=== PATIENT | female | born 2000 | race Caucasian/White ===

== ENCOUNTER 2023-06-10 02:58 | Emergency (ER) | payer SELFPAY ==
[2023-06-10 03:13] VITALS: BP 143/91; PULSE 97; RESP 16; TEMP 36.6; O2SAT 97; BMI 34.9
[2023-06-10] MEDS: lidocaine 2% viscous 15 mL UDC 5 ML MUCOUS MEM (03:54)
[2023-06-10 03:55] VITALS: RESP 16
[2023-06-10] MEDS: oxyCODONE-APAP 5-325 mg Tablet 2 TAB PO (03:55)
[2023-06-10] MEDS: cephALEXin 500 mg Capsule 1000 MG PO (03:55)
[2023-06-10] MEDS: ketorolac 60 mg/2 mL INJ IM (03:55)
[2023-06-10 04:26] VITALS: RESP 14; O2SAT 98
--- NOTE | 2023-06-10 05:09 | W.ED.DENTAL ---
HPI - Dental/Oral General: Chief complaint: Dental/Oral Stated complaint: Tooth pain Time Seen by Provider: 06/10/23 03:23 History of Present Illness: 22-year-old female with right upper and lower molar pain since midnight. She has had significant pain. She is taken Tylenol without relief. No fever. No vomiting. No facial swelling. Associated symptoms: Denies fever(s) or odynophagia Review of Systems Const: Denies: fever(s) Eyes: Denies: change in vision ENMT: Denies: throat pain, uvular edema, enlarged tonsils, odynophagia, hoarseness or swelling of lips/tongue Card: Denies: chest pain Resp: Denies: dyspnea Physical Exam Const: GENERAL APPEARANCE: cooperative; not comfortable and not ill appearing HENMT: COMMON NORMALS: normocephalic, atraumatic and Normal external nose present HEAD & SCALP: normocephalic and atraumatic FACE & SINUS: normal facial exam and face symmetric NOSE: Normal external nose present and Normal nares present MOUTH: Normal oral and palatal mucosa present, lip normal and tongue normal TEETH & GINGIVA: Yes other (#31 swelling with abscess small) THROAT: posterior oropharynx normal; no uvular edema Eye: COMMON NORMALS: Equal, round and reactive pupils present and EOMs intact bilaterally PUPIL: Yes Equal, round and reactive pupils present Chest: CHEST: Yes Symmetrical chest wall rise Resp: COMMON NORMALS: normal respiratory effort, No use of accessory muscles and clear to auscultation bilaterally AUSCULTATION: clear to auscultation bilaterally Cardio: COMMON NORMALS: regular rate and regular rhythm RATE: regular rate RHYTHM: regular rhythm Course Vital Signs: Vital signs: Vital Signs Temperature 98 F 06/10/23 03:13 Pulse Rate 97 06/10/23 03:13 Respiratory Rate 14 06/10/23 04:26 Blood Pressure 143/91 06/10/23 03:13 Pulse Oximetry 98 06/10/23 04:26 Oxygen Delivery Me thod Room Air 06/10/23 03:13 MDM - Dental/Oral Medical Decision Making Right mandibular second molar abscess. Otherwise dental caries with decay. Antibiotics, pain medication, dental follow-up. No radiology studies performed this visit Discharge Plan Discharge Patient Disposition: Home Clinical Impression: Dental abscess Condition: Stable Prescriptions: New hydrocodone-acetaminophen 5-325 mg tablet 1 tab PO Q8H PRN (Reason: pain) Qty: 7 0RF ketorolac 10 mg tablet 10 mg PO TID PRN (Reason: pain) Qty: 10 0RF cephalexin 500 mg capsule 500 mg PO Q6H 10 Days Qty: 40 0RF Discharge Orders: Discharge ED (Routine); Ordered 06/10/23 Ordered By: Dagoberto Lo Patient Instructions: Dental Abscess (ED), Opioid Safety, Pain Management Activity Restrictions/Additional Instructions: See a dentist as soon as possible. Antibiotics as directed. Coding Level of Care Code ED Auto Inspection Specialist for Adilson Santos
== END 2023-06-10 04:28 | disposition home or self-care (01) ==
PROVIDERS: Emergency Provider Emergency Medicine
DX: K04.7 Periapical abscess without sinus (principal)
CPT/HCPCS: 96372; 99284; J1885

== ENCOUNTER 2024-01-19 20:48 | Emergency (ER) | payer SELFPAY ==
[2024-01-19 21:08] VITALS: BP 110/80; PULSE 97; RESP 17; TEMP 36.7; O2SAT 96; BMI 32.3
--- NOTE | 2024-01-19 21:34 | ED_ITS ---
HPI - Dental/Oral General: Chief complaint: Dental/Oral Stated complaint: Tooth/jaw pain Time Seen by Provider: 01/19/24 21:23 Source: patient Mode of arrival: ambulatory Limitations: no limitations History of Present Illness: 23-year-old female states she has been h aving left lower dental pain over the last few days. States pain sharp in nature rates an 8 out of 10 she history of poor dentition states she has not been able to get in a dentist. She has no trismus denies any difficulty swallowing denies any fevers Associated symptoms: Denies fever(s) Related Data Previous Rx's Medication Instructions Recorded hydrocodone 5 mg-acetaminophen 325 1 tab PO Q8H PRN pain #7 tabs 06/10/23 mg tablet ketorolac 10 mg tablet 10 mg PO TID PRN pain #10 tabs 06/10/23 Allergies Allergy/AdvReac Type Severity Reaction Status Date / Time azithromycin [From Zithromax] Allergy ALGY-Hives Verified 01/19/24 21:07 Review of Systems Const: Denies: fever(s), chills, body aches or change in appetite ENMT: Reports: dental pain; Denies: throat pain Card: Denies: chest pain Resp: Denies: dyspnea GI: Denies: abdominal pain, nausea, vomiting or diarrhea Musc: Denies: neck pain or back pain Skin/Breast: Denies: rash Neuro: Denies: headache(s) Physical Exam Const: COMMON NORMALS: no acute distress, patient oriented x3 and healthy appearing HENMT: COMMON NORMALS: normocephalic and atraumatic HEAD & SCALP: normocephalic and atraumatic OTHER: Poor dentition tenderness left lower molars no abscess no trismus Eye: COMMON NORMALS: conjunctivae normal CONJUNCTIVA: Yes conjunctivae normal Neck/C-Spine: COMMON NORMALS: full ROM and supple Chest: COMMONS NORMALS: normal inspection of the chest Resp: COMMON NORMALS: normal respiratory effort Cardio: COMMON NORMALS: regular rate, regular rhythm and No murmurs present (Cardio) RATE: regular rate RHYTHM: regular rhythm Extremity: COMMON NORMALS: normal to inspection and full ROM Neuro: COMMON NORMALS: patient oriented x3, moves all extremities and no focal motor deficits Psych: COMMON NORMALS: mental status grossly normal, Normal thought process present and cooperative THOUGHT PROCESS: Normal thought process present Skin: COMMON NORMALS: no rashes or lesions noted and no wounds GENERAL SKIN EXAM: no rashes or lesions noted Course Vital Signs: Vital signs: Vital Signs Temperature 98.0 F 01/19/24 21:08 Pulse Rate 97 01/19/24 21:08 Respiratory Rate 17 01/19/24 21:08 Blood Pressure 110/80 01/19/24 21:08 Pulse Oximetry 96 01/19/24 21:08 Oxygen Delivery Me thod Room Air 01/19/24 21:08 MDM - Dental/Oral Medical Decision Making Patient presents here with dental pain no trismus no abscess we will place on antibiotics she is to follow-up with dentist return if worsening she understands agrees to plan Medical Records I reviewed the patient's medical records. No radiology studies performed this visit Discharge Plan Discharge Patient Disposition: Home Clinical Impression: Dental caries, Pain, dental Condition: Stable Prescriptions: No Action hydrocodone-acetaminophen 5-325 mg tablet 1 tab PO Q8H PRN (Reason: pain) Qty: 7 0RF ketorolac 10 mg tablet 10 mg PO TID PRN (Reason: pain) Qty: 10 0RF Discharge Orders: Discharge ED (Routine); Ordered 01/19/24 Ordered By: Allyson Ward Discharge Diet: Advance as tolerated Discharge Activity: Resume usual activity Patient Instructions: Toothache (ED) Coding Level of Care Code ED Ornamental Iron Erector for Adilson Santos
== END 2024-01-19 21:51 | disposition home or self-care (01) ==
PROVIDERS: Emergency Provider Emergency Medicine
DX: K08.89 Other specified disorders of teeth and supporting structures (principal); K02.9 Dental caries, unspecified
CPT/HCPCS: 99283

== ENCOUNTER 2025-01-29 19:09 | Emergency (ER) | payer SELFPAY ==
[2025-01-29 19:09] VITALS: BP 134/87; PULSE 101; RESP 16; TEMP 36.7; O2SAT 98; BMI 39.7
--- OUTSIDE RECORDS SUMMARY | 2025-01-29 19:16 | XMS_ITS | Patient Health Record ---
Author Organization [facility] Address [address] [place] [address] Care Team Providers Care Typing Section Chief Name Role Phone Chris Chi Primary Care Provider [phone] Elvis Kate Unavailable [phone] CHRIS CHI Unavailable Unavailable Allergies Allergen (clinical drug ingredient) Drug/Non Drug Allergy documented on EMR Reaction Allergy Type Onset Date Status azithromycin Zithromax Unknown Drug Allergy Acti ve Results Component Value Reference Range Notes Abdomen Acute Series-82507 Reviewed date:10/27/2024 06:07:02 AM Interpretation: Performing Lab: Notes/Report: See Below For Report Abdomen Acute Series Read See Below For Report Reason For Referral No Information Immunizations Vaccine Route Administration Date Status Comme nts Influenza (whole), CPT 07235 Inactive Unknown 07/01/2018 Administered Social History Social History Additional Details Category Social Info Options Details zzMigrated Social History Migrated Social History Drugs/Alcohol:(Alcohol Screen (Audit-C)): Did you have a drink containing alcohol in the past year?: No, Points: 0, Interpretation: Negative ;Tobacco Use:(Tobacco Use/Smoking): Are you a: nonsmoker ; Section Notes: Lives with family Lives with family Plan Of Treatment No Information Insurance Providers Payer Name Payer Address Payer Phone Subscriber Number Group Number Insured Name Patient Relationship to Insured Coverage Start Date Coverage End Date [place] Medicaid [address] [place] [id number] [phone] [id number] Christa Barrera Self - patient is the insured
--- NOTE | 2025-01-29 19:45 | W.ED.GENADLT ---
HPI - General Adult General: Chief complaint: Dental/Oral Stated complaint: whole bottom jaw dental pain Time Seen by Provider: 01/29/25 19:40 History of Present Illness: 24yo F w/cc of severe dental pain for 6 months. Patient has very poor dentition. Her pain is mainly in the lower jaw, she has multiple broken teeth with cavities. She states that when she pushes on the right side of her lower gum, sometimes she has purulent drainage. She has not had a fever and denies trismus. Patient denies any facial swelling. She states she has not been able to see a dentist in the past 6 months. Patient also states that she has not had a menstrual cycle since November 02, is concerned that she is but has not had an positive home test. She has been a little nauseated and has vomited occasionally. Otherwise, patient does not take any medications on a regular basis. Related Data Previous Rx's ?Medication ?Instructions ?Recorded hydrocodone 5 mg-acetaminophen 325 1 tab PO Q8H PRN pain #7 tabs 06/10/23 mg tablet ketorolac 10 mg tablet 10 mg PO TID PRN pain #10 tabs 06/10/23 naproxen 500 mg tablet (Naprosyn) 500 mg PO BID PRN pain #20 tabs 01/19/24 amoxicillin 875 mg-potassium 1 tab PO BID 7 days #14 tabs 01/29/25 clavulanate 125 mg tablet naproxen 500 mg tablet 500 mg PO BID PRN pain #20 tabs 01/29/25 Allergies Allergy/AdvReac Type Severity Reaction Status Date / Time azithromycin (From Zithromax) Allergy ALGY-Hives Verified 01/19/24 21:07 [facility] ED Female Reproductive History: Date of last menstrual period: 11/02/24 Physical Exam Narrative: EXAM NARRATIVE: Vitals were reviewed. Patient is alert, oriented and hemodynamically stable. There is no facial swelling. There is no trismus. Patient is swallowing without difficulty and tolerating secretions. She has very poor dentition, there are several broken teeth with dental caries in the lower jaw and upper jaw. Multiple teeth are tender to percussion. I do not appreciate any purulent drainage or clear evidence of abscess. Patient is breathing comfortably, she has SpO2 above 95% on room air. Patient is not hypotensive, is mildly tachycardic, presumably due to pain. Otherwise, she is ambulatory, no injury to any extremity. Course Vital Signs: Vital signs: Vital Signs Temperature 98.1 F 01/29/25 19:09 Pulse Rate 101 H 01/29/25 19:09 Respiratory Rate 16 01/29/25 19:09 Blood Pressure 134/87 01/29/25 19:09 Pulse Oximetry 98 01/29/25 19:09 Oxygen Delivery Me thod Room Air 01/29/25 19:09 [facility] - General Adult Medical Decision Making 24-year-old female presents with a chief complaint of chronic dental pain. She was recently seen in the emergency department and prescribed [place], antibiotics and Toradol, returns today that she has not been able to get in with a dentist. She continues to have pain. Differential diagnosis includes but is not limited to, dental caries, tooth pain, gingival abscess, periapical abscess, facial cellulitis, other. On exam she cynically stable. She was treated with antibiotics, Toradol and oxycodone. UA does not demonstrate evidence of infection and patient is not . Will prescribed extended course of antibiotics. Patient was counseled on supportive care at home, given return precautions and advised to see a dentist to soon as possible. Patient was discharged in stable condition. Lab Data Laboratory Results HCG, Qual Negative (Negative) 01/29/25 20: Urine Color Yellow (Yellow) 01/29/25 20: Urine Appearance Clear (CLEAR) 01/29/25 20: Urine pH 5.5 (5-7) 01/29/25 20: Ur Specific [place] 1.018 (1.005-1.030) 01/29/25 20: Urine Protein Negative (Negative) 01/29/25 20: Urine Glucose (UA) Negative (Normal) 01/29/25 20: Urine Ketones Negative (Negative) 01/29/25 20: Urine Blood Negative (Negative) 01/29/25 20: Urine Nitrate Negative (Negative) 01/29/25 20: Urine Bilirubin Negative (Negative) 01/29/25 20: Urine Urobilinogen 1.0 mg/dL (Negative) 01/29/25 20:09 Ur Leukocyte Esterase Negative (Negative) 01/29/25 20: Urine RBC 0-2 /hpf (0-2) 01/29/25 20:09 Urine WBC 0-5 /hpf (0-5) 01/29/25 20:09 Ur Squamous Epith Cells 0-5 /hpf (0-5) 01/29/25 20:09 Amorphous Sediment Not Reportable 01/29/25 20:09 Urine Bacteria 1+ /hpf (NONE) H 01/29/25 20:09 Hyaline Casts 0.40 /lpf 01/29/25 20:09 No radiology studies performed this visit Discharge Plan Discharge Patient Disposition: Home Clinical Impression: Toothache, Dental caries Condition: Stable Prescriptions: New amoxicillin-pot clavulanate 875-125 mg tablet 1 tab PO BID 7 Days Qty: 14 0RF naproxen 500 mg tablet 500 mg PO BID PRN (Reason: pain) Qty: 20 0RF No Action hydrocodone-acetaminophen 5-325 mg tablet 1 tab PO Q8H PRN (Reason: pain) Qty: 7 0RF ketorolac 10 mg tablet 10 mg PO TID PRN (Reason: pain) Qty: 10 0RF naproxen [Naprosyn] 500 mg tablet 500 mg PO BID PRN (Reason: pain) Qty: 20 0RF Discharge Orders: Discharge ED (Routine); Ordered 01/29/25 Ordered By: Bing Pires Patient Instructions: Toothache (ED), Opioid Safety, Pain Management, Patient Portal & Brent Instructions Activity Restrictions/Additional Instructions: Take 500 mg of naproxen twice a day. Take 1000 mg of Tylenol every 6 hours. You may use Orajel for dental pain. Please take antibiotics as prescribed. Continue to monitor your condition closely. If your condition worsens or additional concerns arise, please return to the emergency department for reassessment. Please understand that you MUST see a dentist for definitive treatment of your dental pain. Please note that your test today was NEGATIVE. Print Language: Serbian Coding Level of Care Code ED Accounting Machine Operator for Adilson Santos
[2025-01-29 20:22] LABS: Glucose Urine UA Negative (Normal); Nitrate Urine Negative (Negative); Specific Gravity, Urine 1.018 (1.005-1.030)
[2025-01-29 20:24] LABS: Add Urine Microscopic? YES
[2025-01-29 21:11] LABS: HCG Qualitative Urine. Negative (Negative)
[2025-01-29] MEDS: oxyCODONE 5 mg IR Tab/Cap PO (21:19)
[2025-01-29 21:39] VITALS: BP 117/89; PULSE 72; O2SAT 97
== END 2025-01-29 21:40 | disposition home or self-care (01) ==
PROVIDERS: Emergency Provider Emergency Medicine
DX: K08.89 Other specified disorders of teeth and supporting structures (principal); K02.9 Dental caries, unspecified
CPT/HCPCS: 81001; 81025; 96372; 99284; J1885; J9999

== ENCOUNTER 2025-02-04 17:55 | Emergency (ER) | payer SELFPAY ==
[2025-02-04 18:12] VITALS: BP 127/75; PULSE 105; RESP 16; TEMP 36.9; O2SAT 97
--- NOTE | 2025-02-04 18:19 | ED_ITS ---
HPI - Dental/Oral General: Chief complaint: Dental/Oral Stated complaint: L back tooth Pain Pt states ( going into brain) Time Seen by Provider: 02/04/25 18:19 History of Present Illness: 24-year-old female who presents with rig ht lower tooth pain that has been intermittent for a long time. Got worse today. She does states she is going to see a dentist soon. But has not seen one yet. No fever. Related Data Previous Rx's ?Medication ?Instructions ?Recorded hydrocodone 5 mg-acetaminophen 325 1 tab PO Q8H PRN pa in #7 tabs 06/10/23 mg tablet ketorolac 10 mg tablet 10 mg PO TID PRN pain #10 ta bs 06/10/23 naproxen 500 mg tablet (Naprosyn) 500 mg PO BID PRN pa in #20 tabs 01/19/24 amoxicillin 875 mg-potassium 1 tab PO BID 7 days #14 t abs 01/29/25 clavulanate 125 mg tablet naproxen 500 mg tablet 500 mg PO BID PRN pain #20 t abs 01/29/25 amoxicillin 875 mg-potassium 1 tab PO BID 10 days #20 tabs 02/04/25 clavulanate 125 mg tablet hydrocodone 5 mg-acetaminophen 325 1 tab PO Q6H PRN pa in #20 tabs 02/04/25 mg tablet polyethylene glycol 3350 17 17 g PO DAILY #510 grams 1 04/06/24 gram/dose oral powder (Miralax) Allergies Allergy/AdvReac Type Severity Reaction Status Date / Time azithromycin (From Zithromax) Allergy ALGY-Hives Verified 01/19/24 21:07 Review of Systems Narrative: Constitutional symptoms: Negative except as documented in HPI. Skin symptoms: Negative except as documented in HPI. Eye symptoms: Negative except as documented in HPI. ENMT symptoms: Negative except as documented in HPI. Respiratory symptoms: Negative except as documented in HPI. Cardiovascular symptoms: Negative except as documented in HPI. Gastrointestinal symptoms: Negative except as documented in HPI. Genitourinary symptoms: Negative except as documented in HPI. Musculoskeletal symptoms: Negative except as documented in HPI. Neurologic symptoms: Negative except as documented in HPI. Psychiatric symptoms: Negative except as documented in HPI. Endocrine symptoms: Negative except as documented in HPI. Physical Exam Narrative: EXAM NARRATIVE: General: Alert, no acute distress. Skin: warm and dry Head: Normocephalic Neck: Trachea midline Eye: Extraocular movements are intact. Ears, nose, mouth and throat: Oral mucosa moist Respiratory: Respirations are non-labored Musculoskeletal: Normal ROM Gastrointestinal: Abdomen does not appear distended Neurological: Alert and oriented, No focal neurological deficit observed. Psychiatric: Cooperative, appropriate mood & affect. Course Vital Signs: Vital signs: Vital Signs Temperature 98.4 F 02/04/25 18:12 Pulse Rate 105 H 02/04/25 18:12 Respiratory Rate 16 02/04/25 18:12 Blood Pressure 127/75 02/04/25 18:12 Pulse Oximetry 97 02/04/25 18:12 Oxygen Delivery Me thod Room Air 02/04/25 18:12 MDM - Dental/Oral Medical Decision Making Medical decision making Patient's reason for coming to the emergency room: Social determinants: I reviewed the patient's medical record. Patient was seen here 7 days ago with a similar problem. I reviewed the patient's current home meds Patient received Augmentin and naproxen at that time Alternate historians: None Differential diagnosis: including but not limited to and based on the above HPI, review of systems and physical exam: Patient most likely has a dental abscess. No further studies indicated. Assessment and plan: Dental abscess ?Augmentin and [place] in the emergency room - Discharged home - Discussed plan with patient. Answered any questions. - Evaluation and treatment of this problem were appropriate in the emergency setting. No radiology studies performed this visit Discharge Plan Discharge Patient Disposition: Home Clinical Impression: Dental abscess Condition: Stable Prescriptions: New hydrocodone-acetaminophen 5-325 mg tablet 1 tab PO Q6H PRN (Reason: pain) Qty: 20 0RF polyethylene glycol 3350 [Miralax] 17 gram/dose powder 17 g PO DAILY Qty: 510 0RF Rx Instructions: Take 1 scoop daily while taking pain medications. amoxicillin-pot clavulanate 875-125 mg tablet 1 tab PO BID 10 Days Qty: 20 0RF No Action hydrocodone-acetaminophen 5-325 mg tablet 1 tab PO Q8H PRN (Reason: pain) Qty: 7 0RF ketorolac 10 mg tablet 10 mg PO TID PRN (Reason: pain) Qty: 10 0RF naproxen [Naprosyn] 500 mg tablet 500 mg PO BID PRN (Reason: pain) Qty: 20 0RF amoxicillin-pot clavulanate 875-125 mg tablet 1 tab PO BID 7 Days Qty: 14 0RF naproxen 500 mg tablet 500 mg PO BID PRN (Reason: pain) Qty: 20 0RF Discharge Orders: Discharge ED (Routine); Ordered 02/04/25 Ordered By: Ángela Aden Discharge Diet: Usual diet Discharge Activity: Increase activity as tolerated Patient Instructions: Dental Abscess (ED), Opioid Safety, Pain Management, Patient Portal & Brent Instructions Activity Restrictions/Additional Instructions: Please follow-up with a dentist to soon as possible Thank you for choosing [facility] for your healthcare needs today. You have been screened and evaluated and felt safe for discharge. Health conditions do change or evolve sometimes and as such it is important that you follow up with your Primary Doctor to be re checked, 3-5 days is a general good time frame for follow up. You are always welcome to return to the ED for re assessment if your symptoms are worsening or you have new concerns Print Language: German Coding Level of Care Code ED Train Planner for Adilson Santos
[2025-02-04] MEDS: HYDROcodone-acetaminophen 10-325 mg Tablet 1 TAB PO (18:26)
== END 2025-02-04 18:30 | disposition home or self-care (01) ==
PROVIDERS: Emergency Provider Emergency Medicine
DX: K04.7 Periapical abscess without sinus (principal)
CPT/HCPCS: 99283; J9999